=== PATIENT | male | born 2000 | race Two or more races ===

== ENCOUNTER 2022-04-02 00:19 | Emergency (ER) | payer OTHER ==
[~2022-04-02] VITALS: Ht 180.3 cm; Wt 152.2 kg
[2022-04-02 02:02] VITALS: BP 132/84
== END 2022-04-02 02:04 | disposition home or self-care (01) ==
LOC: ER 00:32
DX: R00.2 Palpitations (principal); R00.0 Tachycardia, unspecified
CPT/HCPCS: 93005